=== PATIENT | male | born 1995 | race African-American/Black ===

== ENCOUNTER 2025-01-05 14:42 | Emergency (ER) | payer SELFPAY ==
--- NOTE | ~2025-01-05 | CT_ITS ---
EXAMINATION: CT abdomen pelvis wo con DATE: 01/05/2025 18:40 INDICATION: Hematuria. Urinary frequency. TECHNIQUE: Computed tomography (CT) of the abdomen and pelvis was performed with 100 mL Omnipaque-350 intravenous contrast. Automated exposure control and iterative reconstruction technique were employed. The dose-length product was 202.04 mGy-cm. COMPARISON: None FINDINGS: Lung bases are clear. Heart size is normal. No pericardial or pleural effusion. Liver, gallbladder, spleen, pancreas, bilateral adrenal glands and kidneys are normal. No urolithiasis or hydronephrosis. Bowels including the appendix are normal. Bladder is normal. No free intraperitoneal gas or fluid. No pathologically enlarged abdominal or pelvic lymphadenopathy. Bones are unremarkable. IMPRESSION: 1. No urolithiasis or acute intra-abdominal/pelvic process. Reviewed, dictated and finalized at location A.
[2025-01-05 14:53] VITALS: BP 147/79; PULSE 85; RESP 20; TEMP 36.9; O2SAT 100
[2025-01-05 15:31] LABS: Add Urine Microscopic? YES; Appearance Urine Clear (Clear); Glucose Urine UA Negative (Negative); Leukocyte Esterase Ur Negative LEU/UL (Negative); Nitrate Urine Negative (Negative); Non Pathogenic Casts 0-2; Specific Grav Ur 1.024 (1.001-1.035)
[2025-01-05 17:57] LABS: Trichomonas Vag PCR NOT DETECTED (NOT DETECTE)
--- NOTE | 2025-01-05 18:39 | ED_ITS ---
HPI - Male Genitourinary General Chief complaint: Urogenital-Male Stated complaint: Urinary frequency Time Seen by Provider: 01/05/25 18:07 Source: patient Mode of arrival: ambulatory Limitations: no limitations History of Present Illness HPI Narrative: This is a 29-year-old male that presents to the emergency department for urinary frequency, urgency. Ongoing over the last couple of days. Denies fevers, hematuria. Related Data Allergies Allergy/AdvReac Type Severity Reaction Status Date / Time No Known Allergies Allergy Verified 01/05/25 17:54 Review of Systems 2 Review of Systems: All systems reviewed & are unremarkable except as noted in HPI and below PMFSH Past Medical History Medical History (Updated 01/05/25 @ 21:11 by Jena Turcios PA-C) No active medical problems Exam 2 Narrative: GENERAL: Well-appearing, well-nourished, and in no acute distress. HEAD: Normocephalic, atraumatic. EYES: EOMI. CHEST: Clear to auscultation. No respiratory distress. No wheezes rales or rhonchi HEART: Regular rate and rhythm. No murmur heard. Normal peripheral pulses. ABDOMEN: Soft, nontender, nondistended, normal active bowel sounds. EXTREMITIES: Normal range of motion. No edema. SKIN: Warm, dry, no rash. NEURO: No focal deficits. Alert and oriented x3. PSYCH: Normal mood and affect Course Vital Signs Vital signs: Vital Signs Temperature 98.4 F 01/05/25 14:53 Pulse Rate 85 01/05/25 14:53 Respiratory Rate 20 01/05/25 14:53 Blood Pressure 147/79 H 01/05/25 14:53 Pulse Oximetry 100 01/05/25 14:53 Oxygen Delivery Room Air 01/05/25 14:53 Temperature 98.1 F 01/05/25 19:05 Pulse Rate 74 01/05/25 19:05 Respiratory Rate 18 01/05/25 19:05 Blood Pressure 140/78 01/05/25 19:05 Pulse Oximetry 100 01/05/25 19:05 Oxygen Delivery Room Air 01/05/25 14:53 MDM - Male Genitourinary MDM Narrative Medical decision making narrative: Patient presents to the emergency department for irritative voiding symptoms. Patient is afebrile and nontoxic appearing. His vitals are stable. Cbc without leukocytosis. Kidney function is normal. Urine without evidence of infection, does show red blood cells. Chlamydia, gonorrhea Trichomonas are negative. CT abdomen and pelvis without acute findings. Patient will be started on oral antibiotics for prostatitis. Will be given follow up with urology. Differential Diagnosis Differential diagnosis: Likely urinary tract infection, urethritis, prostatitis and other (kidney stone) Lab Data Attestation: I reviewed the patient's lab results. 01/05/25 20:07 01/05/25 20:07 Labs: Lab Results 01/05/25 01/05/25 Range/Units 15:17 20:07 WBC 5.3 (4.5-10.0) K/mm3 RBC 4.81 (4.6-6.20) M/mm3 Hgb 14.3 (14.0-18.0) g/dL Hct 42.8 (42.0-52.0) % MCV 89.0 (80-100) fl MCH 29.7 (26-34) pg MCHC 33.4 (32-36) g/dl RDW 12.4 (11.5-14.5) % Plt Count 275 (150-375) k/mm3 MPV 9.5 (7.4-10.4) fl Immature Gran % (Auto) 0.2 (0-0.5) % Neut % (Auto) 46.9 (45.5-73.1) % Lymph % (Auto) 43.6 (18.3-44.2) % [place] % (Auto) 7.6 (2.6-8.5) % Eos % (Auto) 1.5 (0-4.4) % Baso % (Auto) 0.2 (0.2-1.2) % Lymph # (Auto) 2.30 (0.9-3.2) K/mm3 [place] # (Auto) 0.4 (0.1-0.6) K/mm3 Eos # (Auto) 0.1 (0-0.3) K/mm3 Baso # (Auto) 0.0 (0.0-0.1) K/mm3 Abs Immat Gran (auto) 0.01 (0.00-0.031) K/mm3 Absolute Neuts (auto) 2.5 (1.3-6.7) K/mm3 Absolute Nucleated RBC 0.000 (0.0-0.012) K/mm3 Nucleated RBC % 0.0 (0.0-0.2) % Sodium 138 (137-145) mmol/L Potassium 4.0 (3.4-5.0) mmol/L Chloride 105 (98-107) mmol/L Carbon Dioxide 26 (22-30) mmol/L Anion Gap 7 (4-12) mmol/L BUN 11 (9-20) mg/dL Creatinine 1.01 (0.7-1.3) mg/dL Estim Creat Clear Calc 101 ml/min Estimated GFR > 60 (59 - ) Glucose 85 (65-110) mg/dL Calcium 9.2 (8.4-10.2) mg/dL Urine Color Yellow (Yellow) Urine Appearance Clear (Clear) Urine pH 6.0 (5.0-9.0) Ur Specific [place] 1.024 (1.001-1.035) Urine Protein Negative (Negative) mg/dL Urine Glucose (UA) Negative (Negative) mg/dL Urine Ketones Trace H (Negative) mg/dL Ur Blood (Man) Trace (Negative) Urine Nitrate Negative (Negative) Urine Bilirubin Negative (Negative) Urine Urobilinogen 1.0 (<2.0) mg/dL Leukocyte Esterase Rfl Negative (Negative) SHEILA/UL Urine RBC 3-5 H (0-2) /hpf Urine WBC 0-5 (0-3) /hpf Ur Squamous Epith Cells None seen (Few) /hpf Urine Bacteria None seen /hpf Urine Casts 0-2 C. trachomatis (PCR) Not detected (NOT DETECTE) N. gonorrhoeae (PCR) Not detected (NOT DETECTE) T. vaginalis (PCR) Not detected (NOT DETECTE) Imaging Data Radiologist's impression: ITS Impressions Abdomen/Pelvis CT 01/05/25 19:01 IMPRESSION: 1. No urolithiasis or acute intra-abdominal/pelvic process. Critical Care Time Critical Care Time Critical Care Time: No Discharge Plan Discharge Clinical Impression: Prostatitis Qualifiers: Prostatitis type: acute Qualified Code(s): N41.0 - Acute prostatitis Patient Disposition: Home Condition: Stable Instructions: Antibiotic Form, Prostatitis (ED) Additional Instructions: Return to the ER if you experience fever, abdominal pain with nausea and vomiting, you are unable to keep down liquids or solids, or any other symptoms that are concerning to you Remain well hydrated. Take oral antibiotics as prescribed Follow up with urology Patient Language: Portuguese Prescriptions: New ciprofloxacin HCl 500 mg tablet 500 mg PO Q12H 14 Days Qty: 28 0RF Follow-up/Referrals: PHYSICIAN,[facility] [employer] [Primary Care Provider, Internal Medicine] Dewey Elliott MD [Physician, Urology]
[2025-01-05 19:05] VITALS: BP 140/78; PULSE 74; RESP 18; TEMP 36.7; O2SAT 100
[2025-01-05 20:14] LABS: Hematocrit 42.8 % (42.0-52.0); Hemoglobin 14.3 g/dL (14.0-18.0); Immature Granulocyte Percent A 0.2 % (0-0.5); Lymphocytes Absolute Auto 2.30 K/mm3 (0.9-3.2); Mean Corpuscular HGB Conc 33.4 g/dl (32-36); Mean Corpuscular Hemoglobin 29.7 pg (26-34); Mean Corpuscular Volume 89.0 fl (80-100); Nucleated Red Blood Cells Absolute Auto 0.000 K/mm3 (0.0-0.012); Nucleated Red Blood Cells Perc 0.0 % (0.0-0.2); Platelet Count Result 275 k/mm3 (150-375); Red Blood Count 4.81 M/mm3 (4.6-6.20); White Blood Count 5.3 K/mm3 (4.5-10.0)
[2025-01-05 20:25] LABS: Anion Gap 7 mmol/L (4-12); Blood Urea Nitrogen 11 mg/dL (9-20); Calcium 9.2 mg/dL (8.4-10.2); Carbon Dioxide 26 mmol/L (22-30); Chloride 105 mmol/L (98-107); Estimated CRCL calculation 101 ml/min; Estimated Glomerular Filt Rate > 60; Glucose 85 mg/dL (65-110); Potassium 4.0 mmol/L (3.4-5.0); Sodium 138 mmol/L (137-145)
[2025-01-05 21:32] VITALS: BP 144/76; PULSE 82; RESP 16; O2SAT 99
== END 2025-01-05 21:34 | disposition home or self-care (01) ==
PROVIDERS: Emergency Provider Physician Assistant
DX: N41.0 Acute prostatitis (principal)
CPT/HCPCS: 36415; 74176; 80048; 81001; 85025; 87491; 87591; 87661; 99284